=== PATIENT | female | born 1960 | race Caucasian/White ===

== ENCOUNTER 2020-12-19 12:41 | Outpatient (CLI) | payer OTHER | END 2020-12-19 12:42 | disposition home or self-care (01) | LOC: CSHMRI 12:41 | PROVIDERS: ATTEND Physician Assistant | DX: R20.8 Other disturbances of skin sensation (principal); R40.20 Unspecified coma; M47.812 Spondylosis without myelopathy or radiculopathy, cervical region | CPT/HCPCS: 70553; 72156 ==